=== PATIENT | male | born 2000 | race Caucasian/White ===

== ENCOUNTER 2019-08-28 16:55 | Emergency (ER) | payer BC, SELFPAY ==
[2019-08-28 17:15] VITALS: BP 145/77; PULSE 77; RESP 18; TEMP 37.1; O2SAT 100
--- NOTE | 2019-08-28 18:01 | ED.SKABFB ---
HPI - Skin/Abscess/Foreign Bdy General Chief complaint: Skin/Abscess/Foreign Body Stated complaint: left hand infection Time Seen by Provider: 08/28/19 17:55 Source: patient and RN notes reviewed Mode of arrival: ambulatory Limitations: no limitations History of Present Illness HPI narrative: 19 year old male who presents to [facility] care with small raised pimple area to left inner wrist for the past 4 days. Patient states that today the center opened up and purulent drainage noted with patient stating some tenderness or soreness to area. Patient denies any known bite or injury to site, no fevers, chills or sweats, some mild swelling dorsal left hand with strong radial pulse left wrist, noted brisk capillary refill of nails, no tingling or numbness to left hand. 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 MD complaint: abscess/boil Onset (ago): day(s) (4) Location: LUE Severity: mild Severity scale (1-10): 2 Quality: aching Pain Consistency: intermittent Relieving factors: none Exacerbating factors: movement and other (palpation) Associated symptoms: other (redness surrounding lesion with tenderness to site minimal swelling dorsal left hand) Treatments prior to arrival: other (cleansing and covered with bandaid) Related Data Home Medications Medication Instructions Recorded Confirmed oseltamivir [Tamiflu] 75 mg PO Q12H 08/28/19 08/28/19 Allergies Allergy/AdvReac Type Severity Reaction Status Date / Time No Known Allergies Allergy Mild Verified 08/28/19 17:09 Review of Systems Review of Systems: Narrative: CONSTITUTIONAL: Denies fever, chills, or sweats. EYES: Denies visual changes, redness, or discharge. ENT: Denies rhinorrhea, congestion, sore throat, or otalgia. CARDIOVASCULAR: Denies chest pain, palpitations, or edema. RESPIRATORY: Denies cough or dyspnea. GASTROINTESTINAL: Denies abdominal pain, nausea, vomiting, or diarrhea. GENITOURINARY: Denies dysuria or hematuria. SKIN: Denies rash or itching, Positive for small open draining lesion to left inner wrist with surrounding redness, purulent drainage noted from wound, patient has history of MRSA MUSCULOSKELETAL: Denies back pain, joint pain, or myalgia. NEUROLOGIC: Denies headache, numbness, or weakness. PSYCHIATRIC: Denies anxiety or depression. All systems reviewed & are unremarkable except as noted in HPI and below PMFSH Past Medical History Medical History (Updated 08/29/19 @ 00:00 by Samara Marin) Staph infection Surgical History Surgical History (Updated 08/28/19 @ 18:05 by Mirna North NP) H/O arthroscopic knee surgery Social History Social History (Updated 08/28/19 @ 18:05 by Mirna North NP) Smoking status: Never smoker Alcohol intake: never Living arrangements: with family Gender identity (if verbalized by the patient): Male Comments At time of signature, agree with nursing past medical, surgical, social history. There is no relevant family history pertinent to the presenting complaint Exam Narrative: Exam Narrative: GENERAL: Well-appearing, well-nourished, and in no acute distress. HEAD: Normocephalic, atraumatic. EYES: PERRLA and EOMI. ENT: Nares clear, no rhinorrhea or epistaxis. Mucous membranes moist. TMs normal with good light reflex throat pink with no swelling or redness no lesions or tonsillar swelling NECK: Supple. No lymphadenopathy CHEST: Clear to auscultation. No respiratory distress. SaO2 100% on room air HEART: Regular rate and rhythm. No murmur heard. Normal peripheral pulses. ABDOMEN: Soft, nontender, nondistended, normal active bowel sounds. EXTREMITIES: Normal range of motion. No edema. SKIN: Warm, dry, 0.5 cm reddened lesion with surrounding 3.5 cm redness to skin on the left inner wrist region, purulent drainage noted from wound. NEURO: No focal deficits. Alert and oriented x3. Course Vital Signs Vital signs: Vital Signs Temperature 37.1 C 08/28/19 17:15 Pulse Rate 7
== END 2019-08-28 18:20 | disposition home or self-care (01) ==
PROVIDERS: Emergency Provider Registered Nurse
DX: L02.414 Cutaneous abscess of left upper limb (principal); L03.114 Cellulitis of left upper limb; Z86.19 Personal history of other infectious and parasitic diseases
CPT/HCPCS: 99213; G0463

== ENCOUNTER 2019-12-10 09:44 | Outpatient (CLI) | payer BC, SELFPAY ==
--- NOTE | ~2019-12-10 | XR_ITS ---
XR knee RT min 4V DATE: 12/10/2019 10:11 INDICATION: Injury, lateral right knee pain TECHNIQUE: 4 views COMPARISON: None FINDINGS: No fracture or dislocation or joint effusion. No periosteal reaction or bone destruction. N o radiopaque intra-articular loose body or chondrocalcinosis. Joint spaces are well preserved. IMPRESSION: Negative Reviewed, dictated and finalized at location B. IMPRESSION: Negative
== END 2019-12-10 09:45 | disposition home or self-care (01) ==
PROVIDERS: PCP Internal Medicine; Visit Provider Internal Medicine
DX: M25.561 Pain in right knee (principal)
CPT/HCPCS: 73564

== ENCOUNTER 2019-12-15 11:09 | Outpatient (CLI) | payer BC, SELFPAY ==
--- NOTE | ~2019-12-15 | MR_ITS ---
EXAMINATION: MR knee RT wo con DATE: 12/15/2019 12:32 INDICATION: Right knee pain. TECHNIQUE: Magnetic resonance imaging (MRI) of the right knee was performed without intravenous contr ast. Sequences included axial PD-weighted FS FSE, coronal PD-weighted FSE and PD-weighted FS FSE, sag ittal PD-weighted FSE, and sagittal T2-weighted FS FSE. COMPARISON: Right knee radiographs 12/10/2019 FINDINGS: Medial compartment: Medial meniscus is normal. Medial compartment cartilage is normal. Lateral compartment: Lateral meniscus is normal. Lateral compartment cartilage is normal. Patellofemoral compartment: Patellar cartilage is normal. Trochlear cartilage is normal. Ligaments and tendons: There is a complete tear of anterior cruciate ligament. There is anterior subluxation of tibia with r espect to distal femur. Posterior cruciate ligament is intact. Medial collateral ligament demonstrate s increased signal, distal thickening, and surrounding edema, consistent with sprain. Lateral collate ral ligament complex is normal. There is mild patellar tendinopathy. Fluid: There is a moderate-sized knee joint effusion. There is a small Tavares's cyst. There is mild superfici al infrapatellar bursitis. Osseous/other: There is edema-like marrow signal intensity in posterior lateral tibial condyle and in the lateral fe moral condyle, consistent with contusions. IMPRESSION: 1. Complete tear of anterior cruciate ligament. 2. Grade 2 sprain of medial collateral ligament. 3. Small Tavares's cyst. Reviewed, dictated and finalized at location A.
== END 2019-12-15 11:10 | disposition home or self-care (01) ==
LOC: CHSIMG 11:11
PROVIDERS: PCP Internal Medicine; Visit Provider Internal Medicine
DX: M25.561 Pain in right knee (principal)
CPT/HCPCS: 73721

== ENCOUNTER 2024-04-11 07:44 | Emergency (ER) | payer OTHER, SELFPAY ==
[2024-04-11 07:44] VITALS: BP 136/91; PULSE 99; RESP 16; TEMP 36.6; O2SAT 98
[2024-04-11 07:54] VITALS: BP 136/91; PULSE 99; RESP 16; TEMP 36.6; O2SAT 98
--- NOTE | 2024-04-11 07:56 | ED.DENTAL ---
HPI - Dental/Oral General Chief complaint: Unspecified Stated complaint: jaw pain Time Seen by Provider: 04/11/24 07:51 Source: patient Mode of arrival: ambulatory Limitations: no limitations History of Present Illness HPI Narrative: 24-year-old male with no past medical history presents to the ED with a 3 day history of -- right temporomandibular joint pain which is worse on moving his jaw. He has been taking ibuprofen without any relief. No fever or chills. No trauma. Onset (ago): day(s) ( Three days) Duration: constant Severity: moderate Exacerbating factors: nothing Treatment prior to arrival: none Related Data Allergies Allergy/AdvReac Type Severity Reaction Status Date / Time No Known Allergies Allergy Mild Verified 04/11/24 07:53 Review of Systems Review of Systems: All systems reviewed & are unremarkable except as noted in HPI and below Constitutional: Constitutional: Reports as per HPI and Reports no additional constitutional complaints Eyes: Eyes: Reports as per HPI and Reports no additional eye complaints ENT: Reports system reviewed and no additional complaints, except as documented and Reports as per HPI Cardiovascular: Cardiovascular: Reports as per HPI and Reports no additional cardiovascular complaints Respiratory: Respiratory: Reports as per HPI and Reports no additional respiratory complaints Gastrointestinal: Gastrointestinal: Reports as per HPI and Reports no additional gastrointestinal complaints Genitourinary: Genitourinary: Reports no additional male genitourinary complaints and Reports as per HPI Musculoskeletal: Musculoskeletal: Reports no additional musculoskeletal complaints and Reports as per HPI Comments: right TMJ pain Integumentary/Breasts: Skin/Breast: Reports system reviewed and no additional complaints, except as docu and Reports as per HPI Neurologic: Reports system reviewed and no additional complaints, except as documented and Reports as per HPI Psychiatric: Psychiatric: Reports no additional psychiatric complaints and Reports as per HPI Endocrine: Endocrine: Reports no additional endocrine complaints and Reports as per HPI Hematologic/Lymphatic: Hematologic/Lymphatic: Reports no additional hematologic/lymphatic complaints and Reports as per HPI Allergic/Immunologic: Allergic/Immunologic: Reports no additional allergic/immunologic complaints and Reports as per HPI PMFSH Past Medical History Medical History Staph infection Surgical History Surgical History H/O arthroscopic knee surgery Social History Social History Smoking status: Never smoker Alcohol intake: never Living arrangements: with family Gender identity (if verbalized by the patient): Male Exam Narrative: blood pressure 136/91 Const: General: no acute distress Nutritional Appearance: well nourished Orientation/consciousness: patient oriented x3 Limitations: no limitations HENMT: Head: normal to inspection Ears: external ears normal Face/Nose/Sinus: Normal external nose present Face and sinus: normal facial exam Mouth: Yes Normal oral and palatal mucosa present Teeth and gingiva: dentition normal Throat: posterior oropharynx normal Other: right TMJ is tender on palpation and worse on movement of the jaw Eyes: Conjunctivae: conjunctivae normal Pupils: Equal, round and reactive pupils present EOM: EOMs intact bilaterally Direct Ophthalmoscopy: no photophobia Neck: Neck: normal visual inspection and no lymphadenopathy Chest: Chest palpation & inspection: normal inspection of the chest Resp: Effort & Inspection: normal respiratory effort Other: occasional rhonchi Cardio: Rate: regular rate Rhythm: regular rhythm GI: Auscultation: normal bowel sounds Other: no tenderness/rigidity / rebound. Skin: General skin exam: normal color Rashes: no rashes Wounds: no wounds Neuro: General: patient oriented x3, moves all extremities, no meningeal signs, no focal motor deficits and CN's II-XI intact bilaterally Cranial nerves: Yes Nystagmus not present Speech: normal speech Gait exam (Neuro): Normal gait present Extrem: General: normal to inspection and no clubbing, cyanosis or edema Psych: Mental Status: mental status grossly normal Affect: normal affect Attitude: cooperative Course Course Emergency Course: Right TMJ arthralgia. right ear exam is unremarkable. Vital Signs Vital signs: Vital Signs Temperature 36.6 C 04/11/24 07:44 Pulse Rate 99 04/11/24 07:44 Respiratory Rate 16 04/11/24 07:44 Blood Pressure 136/91 H 04/11/24 07:44 Pulse Oximetry 98 04/11/24 07:44 Oxygen Delivery Room Air 04/11/24 07:44 Temperature 36.6 C 04/11/24 07:54 Pulse Rate 99 04/11/24 07:54 Respiratory Rate 16 04/11/24 07:54 Blood Pressure 136/91 H 04/11/24 07:54 Pulse Oximetry 98 04/11/24 07:54 Oxygen Delivery Room Air 04/11/24 07:54 MDM - Dental/Oral MDM Narrative Medical decision making narrative: Right TMJ arthralgia Differential Diagnosis Differential diagnosis: Likely dental caries Discharge Plan Discharge Clinical Impression: TMJ arthralgia Patient Disposition: Home, Self-Care Condition: Stable Instructions: Antibiotic Form, Temporomandibular Disorder (ED) Patient Language: Salvadorean Prescriptions: New diclofenac sodium 50 mg tablet,delayed release (DR/EC) 50 mg PO Q12H PRN (Reason: pain) Qty: 30 0RF Follow-up/Referrals: Sharon Napoles MD [Primary Care Provider] - Time of Disposition: 08:02
== END 2024-04-11 08:15 | disposition home or self-care (01) ==
PROVIDERS: Emergency Provider Internal Medicine Critical Care Medicine; PCP Internal Medicine
DX: M26.629 Arthralgia of temporomandibular joint, unspecified side (principal)
CPT/HCPCS: 99283